=== PATIENT | female | born 1995 | race Caucasian/White ===

== ENCOUNTER 2017-08-02 20:34 | Emergency (ER) | payer OTHER ==
[~2017-08-02] VITALS: Ht 172.7 cm; Wt 127.3 kg
[2017-08-02 20:35] VITALS: BP 150/81; PULSE 105; RESP 16; TEMP 99.5; O2SAT 98
--- NOTE | 2017-08-02 21:09 | RADRPT ---
EXAM DATE/TIME: 08/02/2017 20:57 [facility] COMPARISON: No previous studies available for comparison. INDICATIONS : [place], patient fell hit head. RADIATION DOSE: 56.35 CTDIvol (mGy) MEDICAL HISTORY : None SURGICAL HISTORY : None. ENCOUNTER: Initial ACUITY: 1 day PAIN SCALE: 6/10 LOCATION: Bilateral cranial TECHNIQUE: Multiple contiguous axial images were obtained of the head. Using automated exposure control and adj ustment of the mA and/or kV according to patient size, radiation dose was kept as low as reasonably a chievable to obtain optimal diagnostic quality images. DICOM format image data is available electro nically for review and comparison. FINDINGS: There is no evidence for intracranial hemorrhage, mass effect, mass lesions, edema, or extra-axial fl uid collections. The visualized bony structures appear intact. The ventricles are normal size for t he patient's age. There are no signs of acute infarction for technique. There is slight fluid within the right maxillary sinus may be due to sinusitis however is nonspecific. No definite fracture is id entified for technique. CONCLUSION: Unremarkable study except for slight nonspecific fluid within the right maxillar y sinus. Kami Diaz MD on August 02, 2017 at 21:06 Board Certified Radiologist. This report was verified electronically.
--- NOTE | 2017-08-02 21:13 | RADRPT ---
EXAM DATE/TIME: 08/02/2017 21:03 [facility] COMPARISON: No previous studies available for comparison. INDICATIONS : Right knee pain after fall. MEDICAL HISTORY : None. SURGICAL HISTORY : None. ENCOUNTER: Initial ACUITY: 2 days PAIN SCORE: 6/10 LOCATION: Right entire knee. FINDINGS: No definite fractures, or dislocations are identified. No definite lytic or sclerotic lesion is seen . The joint spaces are well maintained. CONCLUSION: Unremarkable study. Kami Diaz MD on August 02, 2017 at 21:12 Board Certified Radiologist. This report was verified electronically.
--- NOTE | 2017-08-02 21:17 | RADRPT ---
EXAM DATE/TIME: 08/02/2017 20:56 [facility] COMPARISON: No previous studies available for comparison. INDICATIONS : Trauma, patient fell, complains of neck pain. RADIATION DOSE: 24.66 CTDIvol (mGy) MEDICAL HISTORY : None SURGICAL HISTORY : None. ENCOUNTER: Initial ACUITY: 1 day PAIN SCALE: 6/10 LOCATION: neck TECHNIQUE: Volumetric scanning of the cervical spine was performed. Multiplanar reconstructions in the sagittal, coronal and oblique axial planes were performed. Using automated exposure control and adjustment o f the mA and/or kV according to patient size, radiation dose was kept as low as reasonably achievable to obtain optimal diagnostic quality images. DICOM format image data is available electronically f or review and comparison. FINDINGS: No significant subluxation or soft tissue swelling is seen. No definite fracture is seen for techniqu e. C2-C3: No appreciable compromised to the thecal sac, exiting nerve roots are seen. The neural kamari jeanmarie are patent bilaterally. No appreciable thecal sac stenosis is seen. C3-C4: No appreciable compromised to the thecal sac, exiting nerve roots are seen. The neural kamari je[place] are patent bilaterally. No appreciable thecal sac stenosis is seen. C4-C5: No appreciable compromised to the thecal sac, exiting nerve roots are seen. The neural kamari je[place] are patent bilaterally. No appreciable thecal sac stenosis is seen. C5-C6: No appreciable compromised to the thecal sac, exiting nerve roots are seen. The neural kamari je[place] are patent bilaterally. No appreciable thecal sac stenosis is seen. C6-C7: No appreciable compromised to the thecal sac, exiting nerve roots are seen. The neural kamari je[place]ie are patent bilaterally. No appreciable thecal sac stenosis is seen. C7-T1: No appreciable compromised to the thecal sac, exiting nerve roots are seen. The neural kamari jeanmarie are patent bilaterally. No appreciable thecal sac stenosis is seen CONCLUSION: Unremarkable study. Kami Diaz MD on August 02, 2017 at 21:12 Board Certified Radiologist. This report was verified electronically.
[2017-08-02] MEDS ORDERED: PANT40TA3 PO (21:37)
[2017-08-02] MEDS ORDERED: LEXA10TA PO (21:37)
--- NOTE | 2017-08-02 21:58 | PD ---
HPI Chief Complaint: Fall Time Seen by Provider: 21:38 Travel History International Travel<30 days: No Contact w/Intl Traveler<30days: No Traveled to known affect area: No History of Present Illness HPI Patient is a 22-year-old female who was at work where she said she slipped either on water or on a rug and her knee hyperflexed and she went down on her right knee and she slammed her head lateral side into the wall she denies LOC. She says she has an abrasion to her knee and she feels dizzy and paracervical tenderness. 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 She has taken 400 mg motrin without relief PFSH Past Medical History Medical History: Denies Significant Hx GERD: Yes Tetanus Vaccination: < 5 Years Influenza Vaccination: No ?: Not LMP: 3 weeks ago Past Surgical History Surgical History: No Previous Surgery Social History Alcohol Use: Yes (occasional ) Tobacco Use: No Substance Use: No Allergies-Medications (Allergen,Severity, Reaction): Coded Allergies: Sulfa (Sulfonamide Antibiotics) (Verified Allergy, Unknown, 08/02/17) amoxicillin (Verified Allergy, Unknown, 08/02/17) clavulanic acid (Verified Allergy, Unknown, 08/02/17) Reported Meds & Prescriptions Reported Meds & Active Scripts Active Zofran (Ondansetron HCl) 4 Mg Tab 4 Mg PO Q6HR PRN Ibuprofen 600 Mg Tab 600 Mg PO Q6H PRN Valium (Diazepam) 2 Mg Tab 2 Mg PO TID PRN Reported Lexapro (Escitalopram Oxalate) 10 Mg Tab 10 Mg PO BID Pantoprazole (Pantoprazole Sodium) 40 Mg Tab 40 Mg PO DAILY Review of Systems Except as stated in HPI: all other systems reviewed are Neg Musculoskeletal: Positive: Myalgias, Arthralgias (right knee pain and paracervical muscle tenderness) Physical Exam Narrative GENERAL: Patient is non-toxic appearing she is in no apparent distress and no apparent pain SKIN: Warm and dry. HEAD: Atraumatic. Normocephalic. Palpation of her head I do not feel any hematoma no swelling and elicit no pain EYES: Pupils equal and round. No scleral icterus. No injection or drainage. ENT: No nasal bleeding or discharge. Mucous membranes pink and moist. Teeth are normal no fracture tongue is normal no laceration NECK: Trachea midline. No JVD. Palpation of her paracervical spinal muscles she does not have any tenderness she only has mild tenderness at T12-L1 area CARDIOVASCULAR: Regular rate and rhythm. RESPIRATORY: No accessory muscle use. Clear to auscultation. Breath sounds equal bilaterally. GASTROINTESTINAL: Abdomen soft, non-tender, nondistended. Hepatic and splenic margins not palpable. MUSCULOSKELETAL: Extremities right knee has a superficial abrasion no bleeding tenderness to palpation and percussion of the medial condyle area... without clubbing, cyanosis, or edema. No obvious deformities. Neurovascular intact distal to her knee strain NEUROLOGICAL: Awake and alert. No obvious cranial nerve deficits. Motor grossly within normal limits. Five out of 5 muscle strength in the arms and legs. Normal speech. PSYCHIATRIC: Appropriate mood and affect; insight and judgment normal. Data Data Last Documented VS Vital Signs Date Time Temp Pulse Resp B/P (MAP) Pulse Ox O2 Delivery O2 Flow Rate FiO2 08/02/17 22:18 08/02/17 20:35 99.5 105 16 98 Room Air Orders Orders Ct Cerv Spine W/O Contrast (08/02/17 ) Ct Brain W/O Iv Contrast(Rout) (08/02/17 ) Knee, Complete (4vws) (08/02/17 ) [facility] Medical Decision Making Medical Screen Exam Complete: Yes Emergency Medical Condition: Yes Differential Diagnosis Differential diagnosis, includes muscle strain versus ligamentous sprain versus knee fracture and knee contusion patella fracture fibular head fracture depressed tibial fracture Narrative Course X-ray of the knee does not show any fracture CT of the head and CT of the cervical spine do not show any fracture dislocation or intracranial injury patient is given Motrin and discharged to follow-up as an outpatient Diagnosis Primary Impression: Knee contusion Qualified Codes: S80.01XA - Contusion of right knee, initial encounter Additional Impression: Cervical muscle strain Qualified Codes: S16.1XXA - Strain of muscle, fascia and tendon at neck level , initial encounter Patient Instructions: Contusion in Adults (ED), General Instructions, Muscle Spasm (ED) Scripts Ondansetron (Zofran) 4 Mg Tab 4 MG PO Q6HR Y for NAUSEA OR VOMITING, #15 TAB 0 Refills Prov: Gurpreet Pineda MD 08/02/17 Ibuprofen (Ibuprofen) 600 Mg Tab 600 MG PO Q6H Y for Pain/Inflammation, #40 TAB 0 Refills Prov: Gurpreet Pineda MD 08/02/17 Diazepam (Valium) 2 Mg Tab 2 MG PO TID Y for MUSCLE SPASM, #10 TAB 0 Refills Prov: Gurpreet Pineda MD 08/02/17 Disposition: 01 DISCHARGE HOME Gurpreet Pineda MD Aug 02, 2017 21:57
[2017-08-02] MEDS ORDERED: IBUP-232 PO (22:13)
[2017-08-02] MEDS ORDERED: DIAZ2 PO (22:13)
[2017-08-02] MEDS ORDERED: ZOFR4TAB PO (22:14)
== END 2017-08-02 22:19 | disposition home or self-care (01) ==
LOC: NEPE 20:34
DX: S80.01XA Contusion of right knee, initial encounter (principal); S16.1XXA Strain of muscle, fascia and tendon at neck level, initial encounter; R42 Dizziness and giddiness; K21.9 Gastro-esophageal reflux disease without esophagitis; W18.30XA Fall on same level, unspecified, initial encounter; Y99.0 Civilian activity done for income or pay; Z79.899 Other long term (current) drug therapy; Z88.2 Allergy status to sulfonamides; Z88.0 Allergy status to penicillin
CPT/HCPCS: 70450; 72125; 73564; 99284

== ENCOUNTER 2017-10-13 13:55 | Emergency (ER) | payer OTHER ==
[~2017-10-13] VITALS: Ht 172.7 cm; Wt 131.5 kg
[~2017-10-13 13:55] MED LIST: DIAZ2 PO; IBUP-232 PO; LEXA10TA PO; PANT40TA3 PO; ZOFR4TAB PO
[2017-10-13 14:06] VITALS: BP 139/87; PULSE 96; RESP 18; TEMP 98; O2SAT 99
== END 2017-10-13 14:21 | disposition left against medical advice (07) ==
LOC: NED 13:55
DX: Z03.89 Encounter for observation for other suspected diseases and conditions ruled out (principal)
CPT/HCPCS: 99281